=== PATIENT | male | born 1980 | race Caucasian/White ===

== ENCOUNTER → 2021-09-14 | Outpatient (CLI) | payer OTHER ==
--- NOTE | 2021-09-14 09:44 | RAD ---
XR FOOT_LEFT 2 VIEWS, XR EXAM OF ANKLE_LEFT 2V History: Reason: LEFT ANKLE INJURY, PAIN, FELL DOWN STAIRS / Spl. Instructions: / History: Technique: 2 views left ankle and 2 views left foot Comparison: None. Findings: No dislocation. Symmetric ankle mortise. No acute fracture. Normal alignment of the foot. No acute fracture. Impression: 1. No acute osseous abnormality. Electronically signed by: Matthew Ngo DO (09/14/2021 9:42 AM) [id number]
== END ==
LOC: PMG 09:00
PROVIDERS: ATTEND Nurse Practitioner Family
DX: S99.912A Unspecified injury of left ankle, initial encounter (principal); S99.922A Unspecified injury of left foot, initial encounter; W10.8XXA Fall (on) (from) other stairs and steps, initial encounter; Y93.89 Activity, other specified; Y92.89 Other specified places as the place of occurrence of the external cause; Y99.8 Other external cause status
CPT/HCPCS: 73600; 73620